=== PATIENT | male | born 1990 | race Caucasian/White ===

== ENCOUNTER 2024-05-24 15:40 | Emergency (ER) | payer OTHER ==
[~2024-05-24] VITALS: Ht 182.9 cm; Wt 102.1 kg
[~2024-05-24 15:40] MED LIST: AMOX500 PO; CETI10 PO; MOMENI
[2024-05-24] MEDS ORDERED: OxyCODONE HCL 5 MG TAB PO ONE (17:10)
[2024-05-24] MEDS ORDERED: Amoxicillin/Clavulanate K 875 MG Tab PO ONE (17:10)
[2024-05-24] MEDS ORDERED: OXAYDO5 M2 PO (17:12)
[2024-05-24] MEDS ORDERED: AMOCLA875 PO (17:12)
== END 2024-05-24 17:19 | disposition home or self-care (01) ==
LOC: ER 15:40
DX: K04.7 Periapical abscess without sinus (principal); Z79.899 Other long term (current) drug therapy
CPT/HCPCS: 99282; A9270